=== PATIENT | female | born 1980 | race Caucasian/White ===

== ENCOUNTER 2016-11-28 08:35 | Day surgery (SDC) | payer OTHER ==
[~2016-11-28 08:35] MED LIST: LACTATED RINGERS 1,000 ML IV ONE
[2016-11-28] MEDS ORDERED: LACTATED RINGERS 1,000 ML IV SCH (08:43)
[2016-11-28 08:47] VITALS: RESP 16; TEMP 96.2
[2016-11-28] MEDS ORDERED: LIDOCAINE 1% 20 ML VIAL (10MG/ML) FOR IV START INTRADERMA ONE (08:50)
[2016-11-28] MEDS ORDERED: IOHEXOL 180 MG/ML 1 ML ML ONE (09:05)
[2016-11-28] MEDS ORDERED: BUPIVACAINE (PF) 0.5% 30 ML VIAL ONE (09:05)
[2016-11-28] MEDS ORDERED: TRIAMCINOLONE ACETONIDE 40 MG/ML 1 ML VIAL ONE (09:05)
[2016-11-28] MEDS ORDERED: IV FLUID CONTINUATION 1,000 ML IV ONE (09:29)
[2016-11-28 09:37] VITALS: PULSE 75
[2016-11-28 09:48] VITALS: BP 111/70
--- NOTE | 2016-11-28 09:48 | FL ---
EXAMINATION TYPE: FL guided pain mgmt statistic DATE OF EXAM: 11/28/2016 9:29 AM COMPARISON: NONE HISTORY: Back pain Fluoroscopy support supplied to the referring clinician. See dictated report from anesthesia, 5 seco nds fluoroscopy time, 2 intraoperative C-arm images document the procedure
--- NOTE | 2016-11-28 10:18 | P.PCN ---
Date of Procedure: 11/28/16 Anest[place]: [facility] [place] Surgeon: Rupert Haji Pathology: none sent Condition: stable Disposition: PACU Description of Procedure: PREOPERATIVE DIAGNOSIS: 1-Bilateral sacroiliitis. 2 Lumbar DDD POSTOPERATIVE DIAGNOSIS:. 1-Bilateral sacroiliitis. 2 Lumbar DDD PROCEDURES: Bilateral Sacroiliac joint steroid injection with fluoroscopy ANESTHESIA: Local with 1% lidocaine; Conscious sedation with Versed/fentanyl. EBL: Minimal. PROCEDURE INDICATIONS: This patient with a history of low back pain secondary to sacroiliitis and lumbar DDD unresponsive to conservative management. PROCEDURE DESCRIPTION: The patient was seen and identified in the preoperative area. Risks, benefits, complications, and alternatives were discussed with the patient (including but not limited to incomplete pain relief, bleeding, infection, nerve damage, and allergies to medications), the patient agreed to proceed with the procedure and signed the consent after all questions were answered. Patient was taken to the OR and time out was completed to verify proper patient , position, laterality of pain, and allergies. Pt was placed in the prone position and a pillow was placed under the abdomen to reduce lumbar lordosis. The lumbosacral area was prepped and draped in the usual sterile fashion. Critical pause was taken. Vital signs were closely monitored during the procedure. The fluoroscopic camera was placed in contralateral oblique view and right sacroiliiac joint lower pole was identified. After local infiltration with 1% lidocaine 2 ml, Subsequently, a 22-gauge 3.5 inch spinal needle was introduced into the posteroinferior aspect of the right sacroiliac joint under direct fluoroscopic visualization. Subsequently, 3 ml of a solution of a total of 6 ml solution containing total 4 mL of 0.5% preservative-free bupivicaine mixed with 80 mg of Kenalog was injected after negative aspiration for CSF, blood, and air and negative for paresthesia. The entire procedure was repeated on the left side as above. Needle was withdrawn intact. Skin was cleansed, and bandages were applied. COMPLICATIONS: None. COMMENTS: DISPOSITION / PLANS: The patient was placed in a supine position and transferred to the recovery area in a stable condition for observation and was discharged from the recovery room after meeting discharge criteria. Home discharge instructions given to the patient by the staff. The patient was reexamined prior to discharge. If the patient has relief, we will plan for SI RFA at next visit, right versus left.
== END 2016-11-28 10:00 | disposition home or self-care (01) ==
LOC: ORPAIN 08:35
PROVIDERS: ATTEND Anesthesiology
DX: M46.1 Sacroiliitis, not elsewhere classified (principal); M51.36 Other intervertebral disc degeneration, lumbar region; G89.29 Other chronic pain; F41.9 Anxiety disorder, unspecified; F32.9 Major depressive disorder, single episode, unspecified; Z79.891 Long term (current) use of opiate analgesic; Z79.899 Other long term (current) drug therapy; Z88.0 Allergy status to penicillin
CPT/HCPCS: 81025; J3301; Q9965; G0260

== ENCOUNTER 2017-01-16 07:08 | Day surgery (SDC) | payer OTHER ==
[2017-01-12 10:48] VITALS: BMI 34.7
[2017-01-16] MEDS ORDERED: LACTATED RINGERS 1,000 ML IV SCH (07:15)
[2017-01-16] MEDS ORDERED: LIDOCAINE 1% 20 ML VIAL (10MG/ML) FOR IV START INTRADERMA ONE (07:32)
[2017-01-16 07:38] VITALS: RESP 16; TEMP 98
[2017-01-16] MEDS ORDERED: BUPIVACAINE (PF) 0.5% 30 ML VIAL ONE (08:10)
[2017-01-16] MEDS ORDERED: TRIAMCINOLONE ACETONIDE 40 MG/ML 1 ML VIAL ONE (08:10)
[2017-01-16 08:57] VITALS: PULSE 83
--- NOTE | 2017-01-16 09:18 | XR ---
EXAMINATION TYPE: XR chest 1V portable DATE OF EXAM: 01/16/2017 8:54 AM COMPARISON: 09/15/2014 HISTORY: Shortness of breath sounds pneumothorax TECHNIQUE: Single frontal view of the chest is obtained. FINDINGS: There is no focal air space opacity, pleural effusion, or pneumothorax seen. The cardiac silhouette size is within normal limits. The osseous structures are intact. Heart size stable. IMPRESSION: No acute process.
[2017-01-16 09:22] VITALS: BP 124/88
--- NOTE | 2017-01-16 10:37 | P.PCN ---
Date of Procedure: 01/16/17 Surgeon: Rupert Haji Pathology: none sent Condition: stable Disposition: PACU Description of Procedure: PREOPERATIVE DIAGNOSIS: myofascial pain syndrome POSTOPERATIVE DIAGNOSIS: same PROCEDURE: Trigger point injections in lumbar paraspinal, thoracic paraspinal, quadratus lumborum muscles. ANESTHESIA: Local with 1% lidocaine; no sedation EBL: Minimal PROCEDURE INDICATION: Patient with severe muscle spasm and trigger points unresponsive to conservative therapy. Pt does not take any blood thinning medications. PROCEDURE DESCRIPTION: The patient was seen and identified in the preoperative area. Risks, benefits, complications, and alternatives were discussed with the patient (including but not limited to incomplete pain relief, bleeding, infection, nerve damage, and allergies to medications), the patient agreed to proceed with the procedure and signed the consent after all questions were answered. Trigger points were marked in preoperative area. Patient was taken to the OR and time out was completed to verify proper patient , position, laterality of pain, and allergies. Pt was placed in the sitting position. The relevant area was prepped and draped in the usual sterile fashion. The area over the myofascial spasm was prepped with Chloraprep utilizing sterile technique. After localization, the 25-gauge 1.5" needle was placed in the center of each of the spastic areas and aspirations were performed, which were negative. 1 ml of a 7 ml combination of 6 ml 0.5% PF bupivacaine and 40 mg Kenalog was injected into each trigger point. The patient tolerated the procedure well and had relief by the time the block had set. Needle was withdrawn intact after each injection. At the end of the procedure, the skin was cleansed and bandages were applied. COMPLICATIONS: None. DISPOSITION/PLAN: The patient was taken to the recovery area after the procedure in a stable condition for observation. Patient was reexamined prior to discharge and there were no issues. Patient was discharged home, accompanied by an adult, after meeting discharged criteria. Discharge instructions were give to the patient by the staff. Patient was specifically instructed not to drive today and to rest for the rest of the day. Patient will follow up in clinic in approximately 4-6 weeks.
== END 2017-01-16 09:42 | disposition home or self-care (01) ==
LOC: ORPAIN 07:08
PROVIDERS: ATTEND Anesthesiology
DX: G89.29 Other chronic pain (principal); M54.5 Low back pain; M79.1 Myalgia; Z79.891 Long term (current) use of opiate analgesic; Z79.3 Long term (current) use of hormonal contraceptives; Z79.899 Other long term (current) drug therapy; Z88.0 Allergy status to penicillin
CPT/HCPCS: 81025; 71010; 20553; J3301; 64479

== ENCOUNTER → 2017-02-20 | Outpatient (CLI) | payer OTHER ==
[2017-02-20 12:35] VITALS: BP 153/109; PULSE 95; RESP 18; TEMP 98
--- NOTE | 2017-02-20 13:06 | P.PN ---
Subjective This is follow-up visit for this patient with a history of severe and chronic low back pain secondary to lumbar degenerative disc disease And sacroiliitis, and myofascial pain syndrome, status post sacroiliac joint steroid injection, and trigger point injection for the thoracic area Patient reported that her low back pain completely gone after the sacroiliac joint injection, but currently she continued to have severe Mid back pain on the right side, and his pain interfering with her activity of daily livings, she consented to take [place] 10/325 when necessary Patient denies any side effects of the medication, denies excessive drowsiness or sleepiness, denies suicidal ideation, and reports that the current pain medication is NOT helping To control the pain and improve activity of daily living Physical Examinations : 1-Constitutiona : Cooperative , not in acute distress . 2-HEENT : nech ; supple , no Lymphadenopathy , no Thyromegaly , normal thyroid size . eyes : no ptosis , no icterus, no photophobia . ENT : normal of hearing , normal oropharynx , no Thrush . 3- Respiratory : Chest clear to auscultations Bilaterally , no wheezing , no Rhonchi . 4- Cardiovascular : regular rate and rhythem , S1 , S2 , no S3 , no S4. 5- Gastrointestinal : abdomen soft no tenderness , bowel sounds positive all four quadrents , no organomegally . 6- Genitourinary : Defferred . 7- neurologic : Cranial nerve II to XII intact , no focal neurological deffecit . 8-psychatric : alert , oriented X 3 , appropriate affect , intact judgment and insight . 9-Lymphatic : no Lymphadenopathy . 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 - diagnoses, prognosis, and treatment options including but not limited to physical therapy, interventional pain management and medication management Patient reported the children he did physical therapy without any benefit , The questions answered -medication management = Voltaren gel 1% to be applied to the right side of the posterior chest wall twice daily -procedure= right intercostal nerve block under fluoroscopy guidance mid to lower part Objective - Vital Signs Vital signs: Vital Signs Temp 98.0 F 02/20/17 12:28 Pulse 95 02/20/17 12:28 Resp 18 02/20/17 12:28 BP 153/109 02/20/17 12:28 Pulse Ox 95 02/20/17 12:28 Intake & Output 02/19/17 02/20/17 02/20/17 18:59 06:59 18:59 Weight 91.626 kg
== END | disposition home or self-care (01) ==
LOC: PNWHC3 12:12
PROVIDERS: ATTEND Specialist
DX: M51.36 Other intervertebral disc degeneration, lumbar region (principal); M46.1 Sacroiliitis, not elsewhere classified
CPT/HCPCS: 99211

== ENCOUNTER 2017-03-20 06:33 | Day surgery (SDC) | payer OTHER ==
[2017-03-17 08:49] VITALS: BMI 35.6
[~2017-03-20 06:33] MED LIST changes: -LACTATED RINGERS 1,000 ML IV ONE; +LACTATED RINGERS 1,000 ML IV SCH
[2017-03-20 06:59] VITALS: RESP 16; TEMP 97.9
[2017-03-20] MEDS ORDERED: LIDOCAINE 1% 20 ML VIAL (10MG/ML) FOR IV START INTRADERMA ONE (07:06)
[2017-03-20] MEDS ORDERED: TRIAMCINOLONE ACETONIDE 40 MG/ML 1 ML VIAL ONE (07:51)
[2017-03-20] MEDS ORDERED: MIDAZOLAM 2 MG/2 ML VIAL ONE (07:51)
[2017-03-20] MEDS ORDERED: IOHEXOL 180 MG/ML 1 ML ML ONE (07:51)
[2017-03-20] MEDS ORDERED: BUPIVACAINE (PF) 0.5% 30 ML VIAL ONE (07:51)
[2017-03-20] MEDS ORDERED: fentaNYL (PF) 50 MCG/ML 2 ML AMP ONE (07:51)
[2017-03-20] MEDS ORDERED: IV FLUID CONTINUATION 1,000 ML IV ONE (08:20)
--- NOTE | 2017-03-20 08:20 | P.PCN ---
Date of Procedure: 03/20/17 Procedure(s) Performed: PROCEDURE: right T 7 ,T8 ,T9 Neurolytic Intercostal nerve block under fluoroscopic guidance. PREOP DIAGNOSIS: Intercostal neuralgia. POSTOP DIAGNOSIS: Intercostal neuralgia. ANESTHESIA: IV sedation with Versed, 2 mg and Fentanyl 100 mcg ( moderate sedations ) EBL: Minimal DENTAL PRACTICE MANAGER: COMPLICATION: None. IV FLUIDS: 100 mL of normal saline. PROCEDURE INDICATION: Chronic right-sided thoracic pain secondary to intercostals neuralgia .the Painful area was marked, the preop holding area, then we went to the procedure room visualized rapes that is consistent with the pain for 40 Lorenzo was between T7 to T9 is for this reason we did leave a block at these levels PROCEDURE DESCRIPTION: The patient was seen and identified in the preoperative area. Risks, benefits, complications, and alternatives were discussed with the patient. The patient agreed to proceed with the procedure and signed the consent. IV was started. Vital signs were stable throughout the procedure. The patient was taken to the procedure room and was placed in the prone position on the procedure table. The thoracic area was prepped and draped in the usual sterile fashion. Critical pause was taken. Using anteroposterior fluoroscopy, the T9 (first level) rib on the right side was identified. An area approximately 2 inches lateral to the vertebral midline was localized under fluoroscopy. Subsequently, a 22-gauge, 3-1/2-inch needle was advanced under fluoroscopy towards the inferior aspect of the rib. After making contact with the rib, the needle was walked off and carefully slipped inferiorly off the rib. After negative aspiration and with the absence of paresthesias, 1,5 ml of Bupivacaine 0.5 % . The needle was subsequently removed while being flushed with Bupivacaine 0.5% and the same procedure was repeated at the levels of T8 , then to T7 At the end of the procedure, skin was cleansed, and bandages were applied. Patient denied any shortness of breath after the procedure. Lungs auscultation showed clear and equal air entry bilaterally after the procedure. The patient tolerated the procedure well without complications. Patient was observed in the recovery area until she met all discharge criteria. chest x-ray in the recovery room
--- NOTE | 2017-03-20 08:28 | FL ---
EXAMINATION TYPE: FL guided pain mgmt statistic DATE OF EXAM: 03/20/2017 8:19 AM HISTORY: Flouroscopy time 6 seconds of fluoroscopy provided. IMPRESSION: 1. Fluoroscopy time.
--- NOTE | 2017-03-20 08:41 | XR ---
EXAMINATION TYPE: XR chest 1V portable DATE OF EXAM: 03/20/2017 8:33 AM COMPARISON: 01/16/2017 HISTORY: Pain possible pneumothorax TECHNIQUE: Single frontal view of the chest is obtained. FINDINGS: There is no focal air space opacity, pleural effusion, or pneumothorax seen. The cardiac silhouette size is within normal limits. The osseous structures are intact. IMPRESSION: No acute process.
[2017-03-20 08:45] VITALS: BP 122/86; PULSE 77
== END 2017-03-20 09:05 | disposition home or self-care (01) ==
LOC: ORPAIN 06:33
PROVIDERS: ATTEND Specialist
DX: G89.29 Other chronic pain (principal); G58.8 Other specified mononeuropathies; M51.36 Other intervertebral disc degeneration, lumbar region; M46.1 Sacroiliitis, not elsewhere classified; M79.1 Myalgia; Z79.891 Long term (current) use of opiate analgesic; Z88.0 Allergy status to penicillin; I10 Essential (primary) hypertension
CPT/HCPCS: 81025; 71010; 64421; 99152; J2250; J3301; Q9965; J3010

== ENCOUNTER 2017-04-11 10:07 | Day surgery (SDC) | payer OTHER ==
[2017-04-05 10:50] VITALS: BMI 34.7
[2017-04-11 10:31] VITALS: TEMP 96.2
[2017-04-11] MEDS ORDERED: LIDOCAINE 1% 20 ML VIAL (10MG/ML) FOR IV START INTRADERMA PRN (10:39)
[2017-04-11] MEDS ORDERED: LACTATED RINGERS 1,000 ML IV SCH (10:39)
[2017-04-11] MEDS ORDERED: fentaNYL (PF) 50 MCG/ML 2 ML AMP ONE (11:05)
[2017-04-11] MEDS ORDERED: BUPIVACAINE (PF) 0.5% 30 ML VIAL ONE (11:05)
[2017-04-11] MEDS ORDERED: MIDAZOLAM 2 MG/2 ML VIAL ONE (11:05)
[2017-04-11] MEDS ORDERED: TRIAMCINOLONE ACETONIDE 40 MG/ML 1 ML VIAL ONE (11:05)
[2017-04-11] MEDS ORDERED: IOHEXOL 180 MG/ML 1 ML ML ONE (11:05)
[2017-04-11] MEDS ORDERED: IV FLUID CONTINUATION 1,000 ML IV ONE (11:27)
--- NOTE | 2017-04-11 11:28 | P.PCN ---
Date of Procedure: 04/11/17 Preoperative Diagnosis: Postoperative Diagnosis: Procedure(s) Performed: PROCEDURE: right sided T7, T8, T9. Intercostal nerve block under fluoroscopic guidance. PREOP DIAGNOSIS: Intercostal neuralgia. POSTOP DIAGNOSIS: Intercostal neuralgia. ANESTHESIA: IV sedation with Versed 2 mg , and Fentanyl 100 mcg EBL: Minimal SENIOR UI UX DEVELOPER: COMPLICATION: None. IV FLUIDS: 100 mL of normal saline. PROCEDURE INDICATION: Chronic right-sided thoracic pain secondary to intercostals neuralgia ,she is here for diagnostic block with Bupivacaine. PROCEDURE DESCRIPTION: The patient was seen and identified in the preoperative area. Risks, benefits, complications, and alternatives were discussed with the patient. The patient agreed to proceed with the procedure and signed the consent. IV was started. Vital signs were stable throughout the procedure. The patient was taken to the procedure room and was placed in the prone position on the procedure table. The thoracic area was prepped and draped in the usual sterile fashion. Critical pause was taken. Using anteroposterior fluoroscopy, the T9(first level) rib on the right was identified. An area approximately 2 inches lateral to the vertebral midline was localized under fluoroscopy. Subsequently, a 25-gauge, 3-1/2-inch needle was advanced under fluoroscopy towards the inferior aspect of the rib. After making contact with the rib, the needle was walked off and carefully slipped inferiorly off the rib. After negative aspiration and with the absence of paresthesias, 1,5 ml of Bupivacaine 0.5 % mixed with kenalog . and the same procedure was repeated at the levels of right T8, and T7 At the end of the procedure, skin was cleansed, and bandages were applied. Patient denied any shortness of breath after the procedure. Lungs auscultation showed clear and equal air entry bilaterally after the procedure. The patient tolerated the procedure well without complications. Patient was observed in the recovery area until he/she met all discharge criteria. Chest X Ray was orded To confirm that there is no pneumothorax Implants: Indications for Procedure: Operative Findings: Description of Procedure:
[2017-04-11 11:30] VITALS: RESP 18
[2017-04-11 11:46] VITALS: BP 129/83; PULSE 84
--- NOTE | 2017-04-11 11:57 | XR ---
EXAMINATION TYPE: XR chest 1V portable DATE OF EXAM: 04/11/2017 11:52 AM COMPARISON: 03/20/2017 INDICATION: Pneumothorax, difficulty breathing TECHNIQUE: Single frontal view of the chest is obtained. FINDINGS: The heart size is normal. The pulmonary vasculature is normal. The lungs are clear. There is slight increased density at the anterior right first rib and, present previously No pneumothorax is evident. IMPRESSION: 1. No acute pulmonary process. 2. No pneumothorax
--- NOTE | 2017-04-11 12:01 | FL ---
Fluoroscopy HISTORY: Pain 8 seconds fluoroscopy time supplied to the referring clinician. 3 intraoperative C-arm images docume nt the procedure. See dictated report from anesthesia.
== END 2017-04-11 12:03 | disposition home or self-care (01) ==
LOC: ORPAIN 10:07
PROVIDERS: ATTEND Specialist
DX: G58.0 Intercostal neuropathy (principal); Z88.0 Allergy status to penicillin
CPT/HCPCS: 81025; 71010; 64421; 99152; J2250; J3301; Q9965; J3010

== ENCOUNTER → 2017-07-05 | Outpatient (CLI) | payer OTHER ==
[2017-07-05 15:30] LABS: Basophils % (A) 0 %; CH 32.3; CHCM 34.6; Eosinophils # (A) 0.1 k/uL (0-0.7); Eosinophils % (A) 2 %; HCT 43.1 % (34.0-46.0); Luc # (Auto) 0.17; Luc % (Auto) 2; Lymphocytes % (A) 27 %; MCH 32.7 pg (25.0-35.0); MCHC 34.8 g/dL (31.0-37.0); MCV 93.7 fL (80.0-100.0); Mean Platelet Volume 7.3; Monocytes # (A) 0.4 k/uL (0-1.0); Monocytes % (A) 6 %; Neutrophils # (A) 4.7 k/uL (1.3-7.7); Neutrophils % (A) 63 %; RDW 12.5 % (11.5-15.5); WBC 7.4 k/uL (3.8-10.6); WBC (Perox) 6.76
== END | disposition home or self-care (01) ==
LOC: LABPAT 14:45
PROVIDERS: ATTEND Obstetrics & Gynecology
DX: Z01.812 Encounter for preprocedural laboratory examination (principal)
CPT/HCPCS: 85025

== ENCOUNTER 2017-07-12 06:28 | Day surgery (SDC) | payer OTHER ==
[2017-07-06 12:20] VITALS: BMI 32.5
--- NOTE | 2017-07-11 16:57 | P.HPOB ---
History of Present Illness H&P Date: 07/11/17 Chief Complaint: Family Planning 37 year old presents for laparoscopic tubal ligation and removal of nexplanon. Review of Systems All systems: negative Constitutional: Denies chills, Denies fever Eyes: denies blurred vision, denies pain Ears, nose, mouth and throat: Denies headache, Denies sore throat Cardiovascular: Denies chest pain, Denies shortness of breath Respiratory: Denies cough Gastrointestinal: Denies abdominal pain, Denies diarrhea, Denies nausea, Denies vomiting Genitourinary: Denies dysuria, Denies hematuria Musculoskeletal: Denies myalgias Integumentary: Denies pruritus, Denies rash Neurological: Denies numbness, Denies weakness Psychiatric: Denies anxiety, Denies depression Endocrine: Denies fatigue, Denies weight change Past Medical History Past Medical History: Hypertension, Osteoarthritis (OA), Seizure Disorder Additional Past Medical History / Comment(s): Urinary incontinence at night. Pain MID RT Back. HX 2 SEIZURES, POSS STRESS INDUCED, LAST SEIZURE 2013. History of Any Multi-Drug Resistant Organisms: MRSA Date of last positivie culture/infection: 05/2016 MDRO Source:: BILAT groin Past Surgical History: Section, Orthopedic Surgery Additional Past Surgical History / Comment(s): I&D RT groin wound; left hand carpal tunnel surgery. PAIN PROC Past Anesthesia/Blood Transfusion Reactions: Motion Sickness Past Psychological History: Depression Smoking Status: Current every day smoker Past Alcohol Use History: Occasional (2-3x week) Past Drug Use History: None Reported - Past Family History Mother Family Medical History: No Reported History Medications and Allergies Home Medications Medication Instructions Recorded Confirmed Type HYDROcodone/APAP 10-325MG [[place] 1 tab PO TID 07/13/14 04/11/17 History 10-325] Acetaminophen/Diphenhydramine 1 tab PO HS PRN 01/12/17 04/11/17 History [Tylenol PM 500-25mg] Etonogestrel [Nexplanon ( 68 mg SQ CONTINUOUS 01/12/17 04/11/17 History control implant)] Allergies Allergy/AdvReac Type Severity Reaction Status Date / Time Penicillins Allergy Mild Rash/Hives Verified 07/06/17 12:15 Exam Osteopathic Statement: *. No significant issues noted on an osteopathic structural exam other than those noted in the History and Physical/Consult. HEart: RRR Lungs: CTAB Abdomen: soft, nontender Extremeties: neg yanira's Assessment and Plan (1) Family planning Status: Acute Plan: 1. laparoscopic tubal ligation and removal of nexplanon.
[~2017-07-12 06:28] MED LIST changes: +DEXAMETHASONE SOD PHOSPHATE 10 MG/ML 1 ML VIAL IV ONE; +HYDROmorphone 1 MG/ML 1 ML SYRINGE IVP PRN; +ONDANSETRON 4 MG/2 ML VIAL IVP ONE; +Pre Op ABX Message 1 EACH MISC MISCELLANE ONE
[2017-07-12] MEDS ORDERED: LIDOCAINE 1% 20 ML VIAL (10MG/ML) FOR IV START INTRADERMA ONE (07:03)
[2017-07-12] MEDS ORDERED: SCOPOLAMINE 1.5MG/72HR PATCH TRANSDERM STA (07:04)
[2017-07-12] MEDS ORDERED: SUCCINYLCHOLINE CHLORIDE 100 MG/5 ML SYR IV ONE (07:27)
[2017-07-12] MEDS ORDERED: NEOSTIGMINE 1 MG/ML 10 ML VIAL ONE (07:27)
[2017-07-12] MEDS ORDERED: BUPIVACAINE (PF) 0.25% 30 ML VIAL SQ ONE (07:27)
[2017-07-12] MEDS ORDERED: MIDAZOLAM 2 MG/2 ML VIAL ONE (07:27)
[2017-07-12] MEDS ORDERED: GLYCOPYRROLATE 0.2 MG/ML 2 ML VIAL ONE (07:27)
[2017-07-12] MEDS ORDERED: PROPOFOL 10 MG/ML 20 ML VIAL IV ONE (07:27)
[2017-07-12] MEDS ORDERED: fentaNYL (PF) 50 MCG/ML 2 ML AMP ONE (07:27)
[2017-07-12] MEDS ORDERED: LIDOCAINE 1% INJ 10MG/ML (20 ML MDV) ONE (07:27)
[2017-07-12] MEDS ORDERED: ROCURONIUM BROMIDE 10 MG/ML 10 ML VIAL IV ONE (07:27)
--- NOTE | 2017-07-12 08:34 | P.OP ---
Date of Procedure: 07/12/17 Preoperative Diagnosis: 1. Family planning Postoperative Diagnosis: 1. Family planning Procedure(s) Performed: Laparoscopic tubal ligation and removal of Nexplanon Implants: Anesthesia: GETA Surgeon: Nicole Benito Estimated Blood Loss (ml): 5 IV fluids (ml): 500 Urine output (ml): 10 Pathology: none sent Condition: stable Disposition: floor Indications for Procedure: Operative Findings: Normal Uterus tubes and ovaries Description of Procedure: Patient was taken to the operating room where general anesthesia was obtained without difficulty. She was prepped and draped in normal sterile fashion in the dorsal lithotomy position, legs placed in the Dewayne stirrups. Bladder drained of all urine. [place] speculum placed in the vagina and the anterior lip the cervix was grasped with single-tooth tenaculum. The uterus is sounded to 9 cm and the kroner manipulator was placed. Attention was then turned to the abdomen and gloves were changed. A 10 mm infraumbilical incision was made the scalpel and 10 mm optical trocar was placed under direct visualization. A 5 mm suprapubic Incision was made and a 5 mm optical trocar was placed under direct visualization. Survey of the pelvis revealed normal uterus tubes and ovaries. The left fallopian tube was grasped with a Kleppinger and fulgurated 2 -3 cm on this side in the ampullar portion. The right fallopian tube was grasped with a Kleppinger and fulgurated 2-3 cm in the ampullar portion. All instruments were then removed from the abdomen and vagina. The 10 mm infraumbilical incision was closed with 0 Vicryl and the fascial layer and then 4-0 Vicryl in a subcuticular fashion. The 5 mm incision was closed with 4-0 Vicryl in a subcuticular fashion. Attention was then turned to the left bicep region. The Nexplanon was identified. A 2 mm incision was made, Nexplanon was delivered through the incision, grasped with a hemostat and easily removed. Incision was closed with 0 Vicryl in a subcuticular fashion. Patient tolerated procedure well, sponge and instrument counts correct 2 and she was taken to recovery room in stable condition.
[2017-07-12 08:38] VITALS: TEMP 97
[2017-07-12] MEDS ORDERED: HYDROmorphone 1 MG/ML 1 ML SYRINGE IVP ONE ×2 (08:39→08:44)
[2017-07-12] MEDS ORDERED: LACTATED RINGERS 1,000 ML IV ONE (08:47)
[2017-07-12 09:53] VITALS: RESP 16
[2017-07-12] MEDS ORDERED: IBUPROFEN 200 MG TAB PO ONE (10:15)
[2017-07-12 10:19] VITALS: BP 123/87; PULSE 82
== END 2017-07-12 10:47 | disposition home or self-care (01) ==
LOC: OR 06:28
PROVIDERS: ATTEND Obstetrics & Gynecology
DX: Z30.2 Encounter for sterilization (principal); I10 Essential (primary) hypertension; M19.90 Unspecified osteoarthritis, unspecified site; G40.909 Epilepsy, unspecified, not intractable, without status epilepticus; F32.9 Major depressive disorder, single episode, unspecified; N39.3 Stress incontinence (female) (male); Z79.3 Long term (current) use of hormonal contraceptives; Z79.891 Long term (current) use of opiate analgesic; Z88.0 Allergy status to penicillin; Z86.14 Personal history of Methicillin resistant Staphylococcus aureus infection; F17.200 Nicotine dependence, unspecified, uncomplicated
CPT/HCPCS: 81025; 58670; 11982; J2250; J1100; J2710; J2405; J2001; J3010; J1170; J0330; J2704

== ENCOUNTER → 2017-09-22 | Outpatient (CLI) | payer OTHER ==
--- NOTE | 2017-09-22 09:13 | MR ---
EXAMINATION TYPE: MR thoracic spine wo con DATE OF EXAM: 09/22/2017 8:46 AM COMPARISON: NONE HISTORY: Thoracic Spondylosis and myelopathy Multiplanar MultiSpin echo imaging of the thoracic spine was performed. Disc spaces: Mild to moderate decreased signal and loss of height at T7-T8 with the right paracentral disc herniation. There is effacement of the ventral thecal sac and mild ventral cord contact. No def inite myelopathy changes identified at this time. Moderate decreased signal and loss of height at T11 -T12 with left paracentral broad-based disc protrusion. Mild effacement ventral thecal sac. No defini te cord contact at this time. Borderline central stenosis at this level. Remaining thoracic levels ar e within normal limits. Spinal canal: Borderline central stenosis at the T11-T12. Thoracic spinal cord: Thoracic spinal cord is of normal caliber and signal. Paraspinal soft tissues: No evidence for paraspinal mass. No destructive lesions seen. Vertebral segments: Hemangioma of T4. No destructive bone lesions seen. T10 hemangioma also identifie d. IMPRESSION: 1. Degenerative disc disease as discussed. 2. Right paracentral disc herniation at T7-T8 as well as broad-based disc protrusion at T11-T12. See above.
== END | disposition home or self-care (01) ==
LOC: RADMRIMAIN 08:12
PROVIDERS: ATTEND Anesthesiology
DX: M51.24 Other intervertebral disc displacement, thoracic region (principal); M51.34 Other intervertebral disc degeneration, thoracic region
CPT/HCPCS: 72146

== ENCOUNTER → 2017-10-11 | Outpatient (CLI) | payer OTHER ==
[2017-10-11 11:50] VITALS: BP 125/82; PULSE 82; RESP 18; TEMP 98
--- NOTE | 2017-10-11 11:59 | P.PN ---
Progress Note - Text Progress Note Date: 10/11/17 Patient returns for followup for chronic low back and mid-back pain with radiation to R flank and anterior abdomen. Patient improved with SI joint injections for lower back, but had little relief with thoracic TPI and intercostal NB x 2; MRI T-spine results below. Patient continues on [place] pain medications from Dr. Machado. Today, pt denies new-onset weakness, bowel/bladder incontinence, or any other signs or symptoms of cauda equina syndrome. There are no signs of acute intoxication, and no indications of medication diversion or overuse. In addition to above, 13-point review of systems is also negative for chest pain , shortness of breath, changes in vision, changes in hearing, new onset weakness , abdominal pain, diarrhea, extreme fatigue, malaise, fever, skin changes, homicidal or suicidal ideation, or bowel or bladder incontinence. Vital Signs: Reviewed in EMR Gen: WDWN, AAOx3, NAD HEENT: NCAT, EOMI, hearing grossly normal Pulm: resp unlabored Abd: soft, NT, ND Neck: supple, trachea midline ROM in flexion thoracic spine: reduced ROM in extension Thoracic spine: reduced Thoracic paravertebral tenderness: + R > L Thoracic Facet tenderness: + R > L Neuro: CN II-XII grossly intact, muscle strength lower extremities PRESERVED Imaging: MRI thoracic spine without contrast dated 09/22/2017 demonstrates a right paracentral disc herniation of the T7-T8 level with effacement of the ventral thecal sac and mild ventral cord contact. There is moderately decreased signal and loss of height at the T11-T12 level with left paracentral broad-based disc protrusion with mild effacement of ventral thecal sac and borderline central canal stenosis at this level. Assessment: 1. thoracic spondylosis 2. SIJ dysfunction 3. chronic pain syndrome Plan: 1. Explanation: Opioid and psychological risk scores were reviewed. Diagnoses , prognoses, and multiple treatment options including but not limited to physical therapy, interventional therapies, adjuvant medical therapies, narcotic medication therapies, and surgery were discussed with the patient and all questions were answered to the patient's satisfaction. 2. Opioid agreement: no opioids prescribed today 3. Counseling: The patient was counseled extensively on BODY MASS INDEX, EXERCISE. Specifically, the patient was instructed regarding the importance of weight control, and exercise in the context of both chronic pain and overall health. 4. Procedures: thoracic HAMLET T11-T12 if possible 5. Consultations: None 6. Investigations: None 7. Medications: none prescribed 8. Disposition: f/u for procedure as scheduled PQRS measures: 1-Patient's medications are documented in the chart. 2-Tobacco use is negative 3-Patient has not had a pneumococcal vaccine. 4-Advanced care planning discussed, patient unable to give. 5-Opioid contract NOT signed with the patient. 6-Pain positive, follow-up visit or procedure scheduled 7-Patient's blood pressure measured and documented, and WNL 8-Patient's weight was measured, and body mass index ABOVE the normal limits, and counseling was done. Patient instructed to follow up with PCP. 9-Patient WAS NOT identified as an unhealthy alcohol user.
== END | disposition home or self-care (01) ==
LOC: PNWHC3 11:24
PROVIDERS: ATTEND Anesthesiology
DX: M47.814 Spondylosis without myelopathy or radiculopathy, thoracic region (principal); M53.3 Sacrococcygeal disorders, not elsewhere classified; G89.4 Chronic pain syndrome
CPT/HCPCS: 99211

== ENCOUNTER → 2017-11-21 | Day surgery (SDC) | payer OTHER ==
[2017-11-15 23:09] VITALS: BMI 34.3
[~2017-11-21] MED LIST changes: -DEXAMETHASONE SOD PHOSPHATE 10 MG/ML 1 ML VIAL IV ONE; -HYDROmorphone 1 MG/ML 1 ML SYRINGE IVP PRN; +IV FLUID CONTINUATION 1,000 ML IV ONE; +LIDOCAINE 1% 20 ML VIAL (10MG/ML) FOR IV START INTRADERMA ONE; -ONDANSETRON 4 MG/2 ML VIAL IVP ONE; -Pre Op ABX Message 1 EACH MISC MISCELLANE ONE
[2017-11-21 08:03] VITALS: TEMP 97.9
--- NOTE | 2017-11-21 09:33 | P.PCN ---
Date of Procedure: 11/21/17 Surgeon: Rupert Haji Pathology: none sent Condition: stable Disposition: PACU Description of Procedure: PREOPERATIVE DIAGNOSIS: 1-Thoracic disc herniation POSTOPERATIVE DIAGNOSIS: same PROCEDURE 1. Thoracic epidural steroid injection under fluoroscopic guidance at the T11- T12 level. 2. Thoracic epidurogram. ANESTHESIA: Local with 1% lidocaine; IV sedation with Versed/fentanyl. EBL: Minimal PROCEDURE INDICATION: The patient with mid-back pain and radicular symptoms unresponsive to conservative treatment and to intercostal nerve blocks. Fluoroscopy was used to optimize visualization of the needle placement and to maximize safety. No use of blood thinners. PROCEDURE DESCRIPTION / TECHNIQUE: The patient was seen and identified in the preoperative area. Risks, benefits, complications, and alternatives were discussed with the patient, including but not limited to bleeding, infection, nerve damage, allergic reactions to medications, and incomplete pain relief. The patient agreed to proceed with the procedure and signed the consent after all questions were answered. IV was started, and vital signs were stable. Patient was taken to the OR and time out was completed to confirm patient position, procedure, laterality of pain, and allergies. The patient was placed in the prone position on procedure table and a pillow was placed under the abdomen to reduce lumbar lordosis. The lumbosacral area was prepped and draped in the usual sterile fashion. Critical pause was taken. Vital signs were closely monitored during the procedure. Conscious sedation was used during the procedure to decrease patients anxiety. Using anterior-posterior fluoroscopy, the T11-T12 interlaminar space was identified and the skin over this site was marked and then infiltrated with 1% lidocaine subcutaneously. Subsequently, a 20-gauge 3.5-inch Tuohy epidural needle was inserted and advanced toward the epidural space using the Loss of resistance technique and guided by AP and lateral fluoroscopy. The correct needle position in the epidural space was verified with the injection of 2 mL of the water soluble contrast dye Omnipaque 300 contrast and observing an excellent epidurogram with the epidural spread of the dye, after negative aspiration for blood and CSF and in the absence of paresthesias. Again after negative aspiration, a 4 ml mixture containing 20 mg of PF Decadron and 2 ml of preservative free lidocaine 1% solution was injected and a washout of epidurogram was seen. Needle was withdrawn intact, skin was cleansed, and bandages were applied. COMPLICATIONS: None COMMENTS: DISPOSITION / PLANS: The patient was placed in a supine position and transferred to the recovery area in a stable condition for observation. There was no evidence of lower extremity motor or sensory deficit after the procedure. Patient was discharged from the recovery room after meeting discharge criteria. Home discharge instructions were given to the patient by the staff. The patient was reexamined prior to discharge and there were no issues. The patient will schedule a repeat injection in 3-4 weeks.
[2017-11-21 09:38] VITALS: RESP 18
[2017-11-21 10:00] VITALS: BP 114/64; PULSE 68
--- NOTE | 2017-11-21 11:27 | FL ---
Fluoroscopy HISTORY: Pain 9 seconds fluoroscopy time supplied to the referring clinician. 3 intraoperative C-arm images docume nt the procedure. See dictated report from anesthesia.
== END ==
LOC: ORPAIN 07:42
PROVIDERS: ATTEND Anesthesiology
DX: M51.14 Intervertebral disc disorders with radiculopathy, thoracic region (principal); Z88.0 Allergy status to penicillin; Z88.8 Allergy status to other drugs, medicaments and biological substances
CPT/HCPCS: 81025; 62321; J2250; J1100; Q9965; J3010; 99152

== ENCOUNTER 2017-12-21 06:26 | Day surgery (SDC) | payer OTHER ==
[2017-12-13 15:28] VITALS: BMI 33.9
[~2017-12-21 06:26] MED LIST changes: -IV FLUID CONTINUATION 1,000 ML IV ONE; -LIDOCAINE 1% 20 ML VIAL (10MG/ML) FOR IV START INTRADERMA ONE
[2017-12-21] MEDS ORDERED: LIDOCAINE 1% 20 ML VIAL (10MG/ML) FOR IV START INTRADERMA ONE (06:50)
[2017-12-21] MEDS ORDERED: IV FLUID CONTINUATION 1,000 ML IV ONE (07:18)
--- NOTE | 2017-12-21 07:22 | P.PCN ---
Date of Procedure: 12/21/17 Procedure(s) Performed: PREOPERATIVE DIAGNOSIS: 1- Thoracic Herniated Disc Diseases. POSTOPERATIVE DIAGNOSIS: 1-Thoracic herniated Disc Diseases. PROCEDURE 1. Thoracic epidural steroid injection under fluoroscopic guidance at the T7-8 level. 2. Thoracic epidurogram. ANESTHESIA: Local with 1% lidocaine 3 ml and , moderate sedation with intravenous Versed 2 mg ,and fentanyle 100 Mcg EBL: Minimal PROCEDURE INDICATION: The patient with mid back pain and radiculitis symptoms unresponsive to conservative treatment. Fluoroscopy was used to optimize visualization of the needle placement and to maximize safety. PROCEDURE DESCRIPTION / TECHNIQUE: The patient was seen and identified in the preoperative area. Risks, benefits , complications including but not limited to infections ,bleeding ,allergic reaction to the medications ,nerve damage and not complete pain releife , and alternatives were discussed with the patient. The patient agreed to proceed with the procedure and signed the consent. IV was started, and vital signs were stable. Patient was taken to the OR and time out was completed. The patient was placed in the prone position on procedure table and a pillow was placed under the abdomen to reduce lumbar lordosis. The lumbosacral area was prepped and draped in the usual sterile fashion.ere closely monitored during the procedure. Conscious sedation was used during the procedure to decrease patients anxiety. Vital signs was monitered during the entire procedure. Using anterior-posterior fluoroscopy, the T7-8 interlaminar space was identified and the skin over this site was marked and then infiltrated with 1% lidocaine subcutaneously. Subsequently, a 20-gauge Tuohy epidural needle was inserted and advanced toward the epidural space using the ``Loss of resistance technique and guided by AP and lateral fluoroscopy. The correct needle position in the epidural space was verified with the injection of 2 mL of the water soluble contrast dye Omnipaque 180 contrast and observing an excellent epidurogram with the epidural spread of the dye, after negative aspiration for blood and CSF and in the absence of paresthesias. Again after negative aspiration, a 6 ml mixture containing 20 mg of Dexamethasone and 2 ml of preservative free Normal Saline, and 2 ml of preservative free lidocaine 1% solution was injected and a washout of epidurogram was seen. Needle was withdrawn intact, skin was cleansed, and bandages were applied. COMPLICATIONS: None DISPOSITION / PLANS: The patient was placed in a supine position and transferred to the recovery area in a stable condition for observation. There was no evidence of lower extremity motor or sensory deficit after the procedure. Patient was discharged from the recovery room after meeting discharge criteria. Home discharge instructions were given to the patient by the staff. The patient was reexamined prior to discharge. The patient will schedule a follow up in the clinic in 2-4 weeks.
[2017-12-21 08:16] VITALS: BP 126/82; PULSE 87; RESP 16; TEMP 96.9
--- NOTE | 2017-12-21 09:11 | FL ---
EXAMINATION TYPE: FL guidance operating room DATE OF EXAM: 12/21/2017 HISTORY: Flouroscopy time 5 seconds of fluoroscopy provided. IMPRESSION: 1. Fluoroscopy time.
== END 2017-12-21 08:33 | disposition home or self-care (01) ==
LOC: ORPAIN 06:26
PROVIDERS: ATTEND Specialist
DX: M51.14 Intervertebral disc disorders with radiculopathy, thoracic region (principal); Z88.0 Allergy status to penicillin; Z88.8 Allergy status to other drugs, medicaments and biological substances
CPT/HCPCS: 81025; 62321; J2250; J1100; Q9965; J3010

== ENCOUNTER → 2018-01-29 | Outpatient (CLI) | payer OTHER ==
[2018-01-29 14:46] VITALS: BP 142/85; PULSE 116; RESP 16
--- NOTE | 2018-01-29 19:50 | P.PN ---
Subjective Progress Note Date: 01/29/18 This is follow-up visit for this patient with a history of severe and chronic mid back pain secondary to thoracic herniated disc disease ,we have done thoracic epidural steroid injections 2, and she reported that her pain improved significantly after the second injection, Patients currently on Candor 10/325 every 6 hours and Cymbalta Patient denies any side effects of the medication, denies excessive drowsiness or sleepiness, denies suicidal ideation, and reports that the current pain medication is helping To control the pain and improve activity of daily living Patient denies any motor or sensory deficit , patient denies any fever or night sweats, denies any change in the bowel movements or urination Physical Examinations : 1-Constitutiona : Cooperative , not in acute distress . 2-HEENT : nech ; supple , no Lymphadenopathy , no Thyromegaly , normal thyroid size . eyes : no ptosis , no icterus, no photophobia . ENT : normal of hearing , normal oropharynx , no Thrush . 3- Respiratory : Chest clear to auscultations Bilaterally , no wheezing , no Rhonchi . 4- Cardiovascular : regular rate and rhythem , S1 , S2 , no S3 , no S4. 5- Gastrointestinal : abdomen soft no tenderness , bowel sounds positive all four quadrents , no organomegally . 6- Genitourinary : Defferred . 7- neurologic : Cranial nerve II to XII intact , no focal neurological deffecit . 8-psychatric : alert , oriented X 3 , appropriate affect , intact judgment and insight . 9-Lymphatic : no Lymphadenopathy . 10- musculoskeltal : exams of the cervical spine = motor strength normal bilateral upper extremities exams of the Lumber spine = motor strength lower extremities ,thigh and legs .5/5 Assessment and plan = The back pain secondary to thoracic herniated disc disease pain improved significantly, patient getting prescription refill from her primary care she will follow up with the pain clinic when necessary Objective - Vital Signs Vital signs: Vital Signs Temp Pulse 116 H 01/29/18 14:42 Resp 16 01/29/18 14:42 BP 142/85 01/29/18 14:42 Pulse Ox 97 01/29/18 14:42 Intake & Output 01/29/18 01/29/18 01/30/18 06:59 18:59 06:59 Weight 92.986 kg
== END | disposition home or self-care (01) ==
LOC: PNWHC3 14:26
PROVIDERS: ATTEND Specialist
DX: M51.24 Other intervertebral disc displacement, thoracic region (principal); Z79.891 Long term (current) use of opiate analgesic; Z79.899 Other long term (current) drug therapy
CPT/HCPCS: 99211

== ENCOUNTER 2018-07-21 08:27 | Emergency (ER) | payer OTHER ==
[2018-07-21 08:34] VITALS: BP 127/79; PULSE 80; RESP 18; TEMP 98.7
[2018-07-21] MEDS ORDERED: LIDOCAINE 1% INJ 10MG/ML (20 ML MDV) SQ ONE (08:42)
--- NOTE | 2018-07-21 08:43 | ED ---
Skin/Abscess/FB HPI - General Chief complaint: Skin/Abscess/Foreign Body Stated complaint: Abscess on face Time Seen by Provider: 07/21/18 08:35 Source: patient, RN notes reviewed Mode of arrival: ambulatory Limitations: no limitations - History of Present Illness Initial comments: This is a 38-year-old female presents emergency Department chief complaint of abscess to right side of her face. Patient states last few days she's had increased swelling, noted that it looks like a large pimple. Patient states that she's HAD some sort of cyst there that a contract negotiation specialist tried to inject of steroids but did not help. Patient reports no fever no chills no trismus. Patient denies any neck pain or neck stiffness. - Related Data Home Medications Medication Instructions Recorded Confirmed HYDROcodone/APAP 10-325MG [[place] 1 tab PO TID PRN 07/13/14 01/29/18 10-325] DULoxetine HCL [Cymbalta] 40 mg PO BID 12/21/17 01/29/18 Allergies Allergy/AdvReac Type Severity Reaction Status Date / Time Penicillins Allergy Mild Rash/Hives Verified 01/29/18 14:38 fluoxetine [From Prozac] Allergy Vomiting Verified 01/29/18 14:38 Review of Systems ROS Statement: Those systems with pertinent positive or pertinent negative responses have been documented in the HPI. ROS Other: All systems not noted in ROS Statement are negative. Past Medical History Past Medical History: Hypertension, Musculoskeletal Disorder, Osteoarthritis (OA ), Seizure Disorder Additional Past Medical History / Comment(s): Urinary incontinence at night. Pain Back. HX 2 SEIZURES, POSS STRESS INDUCED, LAST SEIZURE 2013. History of Any Multi-Drug Resistant Organisms: MRSA Date of last positivie culture/infection: jun 2014 MDRO Source:: groin Past Surgical History: Section, Orthopedic Surgery, Tubal Ligation Additional Past Surgical History / Comment(s): I&D groin wound; left hand carpal tunnel surgery. PAIN PROC Past Anesthesia/Blood Transfusion Reactions: Motion Sickness Past Psychological History: Anxiety, Depression, PTSD Smoking Status: Current every day smoker Past Alcohol Use History: Occasional Past Drug Use History: None Reported - Past Family History Mother Family Medical History: No Reported History General Exam Limitations: no limitations General appearance: alert, in no apparent distress Head exam: Present: atraumatic, normocephalic, normal inspection Eye exam: Present: normal appearance, PERRL, EOMI. Absent: scleral icterus, conjunctival injection, periorbital swelling ENT exam: Present: normal exam, normal oropharynx, mucous membranes moist, TM's normal bilaterally, normal external ear exam, other (Right lower jawline there is a 1 cm abscess noted) Neck exam: Present: normal inspection, full ROM. Absent: tenderness, meningismus, lymphadenopathy Respiratory exam: Present: normal lung sounds bilaterally. Absent: respiratory distress, wheezes, rales, rhonchi, stridor Cardiovascular Exam: Present: regular rate, normal rhythm, normal heart sounds. Absent: systolic murmur, diastolic murmur, rubs, gallop, clicks Skin exam: Present: warm, dry, intact, normal color. Absent: rash Course Vital Signs 07/21/18 08:28 Temperature 98.7 F Pulse Rate 80 Respiratory 18 Rate Blood Pressure 127/79 O2 Sat by Pulse 98 Oximetry Procedures - Incision & Drainage Consent Obtained: verbal consent Time Out Performed?: Yes Site: face Size (cm): 1 Anesthetic Used: lidocaine 1%, without epi Amount (mLs): 4 I&D Cleaning Method: Chloroprep Needle Aspiration Performed?: Yes I&D Drainage Obtained: Pus, Blood Culture Obtained?: Yes Patient Tolerated Procedure: well, no complications Medical Decision Making - Medical Decision Making 38-year-old female presented for an abscess the right side of her face. I did aspirate the abscess and expressed a large amount of purulent drainage. Patient felt instant relief of the pressure and symptoms. I did explain there may be an underlying cyst that she's had for several years which may cause her problem down the road. She can follow-up with dermatology for removal secondary to be on the face. We did discuss that this was only a needle aspiration because it was on her face and that no incision was going to be made. Patient will continue Bactrim, warm compresses and return for any worsening symptoms. Disposition Clinical Impression: Abscess of face Disposition: HOME SELF-CARE Condition: Stable Instructions: Abscess Incision and Drainage (ED), Abscess (ED) Additional Instructions: Please return to the Emergency Department if symptoms worsen or any other concerns. Is patient prescribed a controlled substance at d/c from ED?: No Referrals: Eddy Hayden MD [Primary Care Provider] - 1-2 days Time of Disposition: 09:10
== END 2018-07-21 09:22 | disposition home or self-care (01) ==
LOC: EC 08:27
DX: L02.01 Cutaneous abscess of face (principal); F32.9 Major depressive disorder, single episode, unspecified; F41.9 Anxiety disorder, unspecified; F43.10 Post-traumatic stress disorder, unspecified; F17.200 Nicotine dependence, unspecified, uncomplicated; Z86.14 Personal history of Methicillin resistant Staphylococcus aureus infection; Z79.899 Other long term (current) drug therapy; Z88.0 Allergy status to penicillin; Z88.8 Allergy status to other drugs, medicaments and biological substances
CPT/HCPCS: 87070; 87205; 99283; 10160; J2001

== ENCOUNTER → 2020-03-31 | Outpatient (CLI) | payer OTHER ==
--- NOTE | 2020-03-31 14:04 | MR ---
EXAMINATION TYPE: MR shoulder LT wo con DATE OF EXAM: 03/31/2020 COMPARISON: NONE HISTORY: Lt shoulder pain, injured Jun 2019 TECHNIQUE: Multiplanar, multisequence imaging of the left shoulder is performed without contrast. FINDINGS: Rotator Cuff: Distal supraspinatus and infraspinatus tendons are predominantly intact. There is tiny articular surface tear believed to be involving the anterior aspect of the infraspinatus tendon measu ring 3 mm transversely coronal image 17 and 3 to 4 mm AP diameter sagittal image 8. Some increased si gnal noted in the distal infraspinatus tendon and adjacent subdeltoid/subacromial bursa. Subscapulari s tendon is intact. Rotator cuff muscle bulk is preserved. Acromioclavicular Joint: Moderate narrowing with mild capsular hypertrophy. No significant spurring. Underlying fat plane maintained. There is however some loss of fat plane as there is type II downslop ing acromion coronal image 18 and sagittal image 13 for reference. Glenohumeral Joint: Mild to moderate narrowing with small glenohumeral joint effusion. No significant spurring. Labrum: The labrum appears grossly intact given limitation of non-arthrogram study. Biceps Tendon: The long head of biceps is in normal location within bicipital groove. Some increased signal and thickening of the intracapsular portion is felt present. Bone marrow signal: Heterogeneity consistent with red marrow reconversion. Subchondral cystic change involving the femoral head is noted. Other: Loss of normal fat in the rotator cuff interval with thickening of the inferior glenohumeral l igament thought present. IMPRESSION: 1. Tendinosis and tiny partial articular surface tear of the infraspinatus tendon. 2. Tendinosis/partial tearing of the intracapsular portion long head of biceps tendon. 3. Type II downsloping acromion with suggestion of underlying impingement, correlate clinically. 4. Possible adhesive capsulitis based on MRI findings, correlate clinically.
== END | disposition home or self-care (01) ==
LOC: RADMRIMAIN 13:00
PROVIDERS: ATTEND Orthopaedic Surgery Sports Medicine
DX: S46.812A Strain of other muscles, fascia and tendons at shoulder and upper arm level, left arm, initial encounter (principal)

== ENCOUNTER → 2021-05-13 | Outpatient (CLI) | payer OTHER ==
--- NOTE | 2021-05-14 14:27 | MM ---
Reason for exam: screening (asymptomatic). Baseline mammogram. Physical Findings: Nurse did not find any significant physical abnormalities on exam. MG Screening Mammo w CAD Bilateral CC and MLO view(s) were taken. The breast tissue is heterogeneously dense. This may lower the sensitivity of mammography. Focal asymmetry upper left MLO view. ASSESSMENT: Incomplete: need additional imaging evaluation, BI-RAD 0 RECOMMENDATION: Special view mammogram of the left breast. If lesion persists on supplemental views, image directed ultrasound is recommended. [facility] will attempt to contact patient to return for supplemental views and ultrasound if indicated.
== END | disposition home or self-care (01) ==
LOC: RADMAMWWP 09:52
PROVIDERS: ATTEND Obstetrics & Gynecology
DX: Z12.31 Encounter for screening mammogram for malignant neoplasm of breast (principal)
CPT/HCPCS: 77067

== ENCOUNTER → 2021-05-25 | Outpatient (CLI) | payer OTHER ==
--- NOTE | 2021-05-25 11:37 | MM ---
Reason for exam: additional evaluation requested from abnormal screening. Last mammogram was performed less than 1 month ago. Physical Findings: Nurse did not find any significant physical abnormalities on exam. MG Work Up Mamm w CAD LT Spot compression CC, spot compression MLO, and LM view(s) were taken of the left breast. Prior study comparison: May 13, 2021, bilateral MG screening mammo w CAD. There are scattered fibroglandular densities. Asymmetry left breast is pliable and presumably represents overlapping fibroglandular tissue. These results were verbally communicated with the patient and result sheet given to the patient on 05/25/21. ASSESSMENT: Negative, BI-RAD 1 RECOMMENDATION: Return to routine screening mammogram schedule for both breasts.
== END | disposition home or self-care (01) ==
LOC: RADMAMWWP 10:22
PROVIDERS: ATTEND Obstetrics & Gynecology
DX: R92.8 Other abnormal and inconclusive findings on diagnostic imaging of breast (principal)
CPT/HCPCS: 77065

== ENCOUNTER → 2022-05-02 | Outpatient (CLI) | payer OTHER ==
[2022-05-02 18:42] LABS: African American GFR (CKD) 128.3 (60.0-200.0); Anion Gap 11.6 mmol/L (10.00-18.00); BUN/Creat Ratio 19.66 Ratio (12.00-20.00); Blood Urea Nitrogen 12.9 mg/dL (9.0-27.0); Calcium 9.2 mg/dL (8.7-10.3); Carbon Dioxide 19.3 mmol/L (20.0-27.5); Non-African American GFR(CKD) 110.7 (60.0-200.0); Potassium 4.3 mmol/L (3.5-5.5)
[2022-05-02 18:54] LABS: Basophils # (A) 0.05 X 10*3/uL (0.00-0.10); Basophils % (A) 0.7 %; Eosinophils # (A) 0.14 X 10*3/uL (0.04-0.35); Eosinophils % (A) 2.1 %; HCT 41.8 % (37.2-46.3); Immature Grans, Automated 0.4 %; Lymphocytes # (A) 1.94 X 10*3/uL (0.90-5.00); MCH 30.7 pg (27.0-32.0); MCHC 33.5 g/dL (32.0-37.0); MCV 91.7 fL (80.0-97.0); Mean Platelet Volume 11.1 fL (9.5-12.2); Monocytes # (A) 0.47 X 10*3/uL (0.20-1.00); NRBC Per 100 WBC 0 /100 WBCS (0.0-0.0); Neutrophils # (A) 4.07 X 10*3/uL (1.80-7.70); Neutrophils % (A) 60.8 %; Platelet Count 266 X 10*3/uL (140-440); RBC 4.56 X 10*6/uL (4.10-5.20); RDW 13.3 % (11.5-14.5)
== END | disposition home or self-care (01) ==
LOC: LABPAT 13:39
PROVIDERS: ATTEND Obstetrics & Gynecology
DX: Z01.812 Encounter for preprocedural laboratory examination (principal)
CPT/HCPCS: 80048; 85025; 86850; 86900; 86901

== ENCOUNTER 2022-05-05 05:30 | Observation (INO) | payer OTHER ==
[~2022-05-05 05:30] MED LIST changes: -LACTATED RINGERS 1,000 ML IV SCH; +VANCOMYCIN 1,250 MG in SODIUM CHLORIDE 0.9% 250 ML IVPB PRN
--- NOTE | 2022-05-05 05:42 | P.HPOB ---
History of Present Illness H&P Date: 05/05/22 Chief Complaint: dysmenorrhea, fibroid uterus 41 year old presents for TLH BS using da angelina and diagnostic cystoscopy for dysmenorrhea and fibroid uterus. Review of Systems All systems: negative Constitutional: Denies chills, Denies fever Eyes: denies blurred vision, denies pain Ears, nose, mouth and throat: Denies headache, Denies sore throat Cardiovascular: Denies chest pain, Denies shortness of breath Respiratory: Denies cough Gastrointestinal: Denies abdominal pain, Denies diarrhea, Denies nausea, Denies vomiting Genitourinary: Denies dysuria, Denies hematuria Musculoskeletal: Denies myalgias Integumentary: Denies pruritus, Denies rash Neurological: Denies numbness, Denies weakness Psychiatric: Denies anxiety, Denies depression Endocrine: Denies fatigue, Denies weight change Past Medical History Past Medical History: Musculoskeletal Disorder, Osteoarthritis (OA), Seizure D isorder Additional Past Medical History / Comment(s): Urinary incontinence at night. Pain Back. HX 2 SEIZURES, POSS STRESS INDUCED, LAST SEIZURE 2013. hx of hypertension but under control now no meds. History of Any Multi-Drug Resistant Organisms: MRSA Date of last positivie culture/infection: jun 2014 MDRO Source:: groin Past Surgical History: Section, Orthopedic Surgery, Tubal Ligation Additional Past Surgical History / Comment(s): I&D groin wound, jaw and behind rt ear; bilateral hands carpal tunnel surgery. PAIN PROC Past Anesthesia/Blood Transfusion Reactions: Motion Sickness Smoking Status: Current every day smoker - Past Family History Mother Family Medical History: No Reported History Father Family Medical History: No Reported History Additional Family Medical History / Comment(s): doesnt go to a Doctor Medications and Allergies Home Medications Medication Instructions Recorded Confirmed Type HYDROcodone/APAP 10-325MG [[place] 1 tab PO TID PRN 07/13/14 04/29/22 History 10-325] DULoxetine HCL [Cymbalta] 60 mg PO DAILY 12/21/17 04/29/22 History Topiramate [Topamax] 100 mg PO DAILY 04/29/22 04/29/22 History Allergies Allergy/AdvReac Type Severity Reaction Status Date / Time Penicillins Allergy Mild Rash/Hives Verified 04/29/22 15:27 fluoxetine [From Prozac] Allergy Vomiting Verified 04/29/22 15:27 Exam Osteopathic Statement: *. No significant issues noted on an osteopathic structural exam other than those noted in the History and Physical/Consult. Heart: RRR Lungs: CTAB Abdomen: soft, nontedner Extremeties: neg yanira's Assessment and Plan (1) Dysmenorrhea Current Visit: Yes Status: Acute Code(s): N94.6 - DYSMENORRHEA, UNSPECIFIED SNOMED Code(s): 755271702 (2) Fibroid uterus Current Visit: Yes Status: Acute Code(s): D25.9 - LEIOMYOMA OF UTERUS, UNSPECIFIED SNOMED Code(s): 10810663 Plan: 1. Total laparoscopic hysterectomy and bilateral salpingectomy using da angelina, diagnostic cystoscopy, possible laparotomy.
[2022-05-05] MEDS ORDERED: DEXAMETHASONE SOD PHOSPHATE 4 MG/ML 1 ML VIAL IV ONE (05:44)
[2022-05-05] MEDS ORDERED: ONDANSETRON 4 MG/2 ML VIAL IVP ONE (05:44)
[2022-05-05] MEDS: LACTATED RINGERS 1,000 ML IV SCH ×2 (05:50→14:22)
[2022-05-05] MEDS ORDERED: GLYCOPYRROLATE 0.2 MG/ML 2 ML VIAL ONE ×2 (07:12)
[2022-05-05] MEDS ORDERED: PROPOFOL 10 MG/ML 20 ML VIAL IV ONE ×2 (07:12)
[2022-05-05] MEDS ORDERED: fentaNYL (PF) 50 MCG/ML 2 ML AMP ONE ×2 (07:12)
[2022-05-05] MEDS ORDERED: MIDAZOLAM 2 MG/2 ML VIAL ONE ×2 (07:12)
[2022-05-05] MEDS ORDERED: ROCURONIUM 10 MG/ML (5 ML VIAL) IV ONE ×2 (07:12)
[2022-05-05] MEDS ORDERED: SUCCINYLCHOLINE CHLORIDE 100 MG/5 ML SYR IV ONE ×2 (07:12)
[2022-05-05] MEDS ORDERED: HYDROmorphone (PF) 1 MG/ML ONE ×2 (07:12)
[2022-05-05] MEDS ORDERED: LIDOCAINE 2% INJ 20 MG/ML (2 ML VIAL) ONE ×2 (07:12)
[2022-05-05] MEDS ORDERED: NEOSTIGMINE 1 MG/ML 10 ML VIAL ONE ×2 (07:12)
[2022-05-05] MEDS ORDERED: KETOROLAC 15 MG/ML 1 ML VIAL ONE ×2 (07:12)
[2022-05-05] MEDS ORDERED: BUPIVACAINE (PF) 0.25% 30 ML VIAL SQ ONE ×2 (07:47→08:50)
[2022-05-05] MEDS ORDERED: LACTATED RINGERS 1,000 ML IV ONE (08:23)
[2022-05-05] MEDS ORDERED: METOCLOPRAMIDE 5 MG/ML 2 ML VIAL IVP PRN (09:11)
[2022-05-05] MEDS ORDERED: ZOLPIDEM 5 MG TAB PO PRN (09:11)
[2022-05-05] MEDS ORDERED: diphenhydrAMINE 50 MG/ML 1 ML VIAL IVP PRN (09:11)
[2022-05-05] MEDS ORDERED: SIMETHICONE 80 MG CHEWABLE PO PRN (09:11)
[2022-05-05] MEDS ORDERED: IBUPROFEN 600 MG TAB PO PRN (09:11)
[2022-05-05] MEDS ORDERED: ONDANSETRON 4 MG/2 ML VIAL IVP PRN (09:11)
--- NOTE | 2022-05-05 09:11 | P.OP ---
Date of Procedure: 05/05/22 Preoperative Diagnosis: 1. Fibroid uterus 2. Dysmenorrhea Postoperative Diagnosis: 1. Fibroid uterus 2. Dysmenorrhea Procedure(s) Performed: Total laparoscopic hysterectomy using da Shiraz and diagnostic cystoscopy Anesthesia: OLVIN Surgeon: Nicole Benito Raw Material Planner #1: Jacey Ramos Estimated Blood Loss (ml): 50 IV fluids (ml): 1,000 Urine output (ml): 100 Pathology: other (Uterus and cervix) Condition: stable Disposition: PACU Operative Findings: Enlarged uterus 13 cm. normal ovaries Description of Procedure: Patient taken the operating room where general anesthesia was obtained without difficulty. She is prepped and draped in normal sterile fashion dorsal lithotomy position, legs placed in the Dewayne stirrups. Weighted speculum placed in the vagina and the anterior lip the cervix was grasped with single-tooth tenaculum. The uterus sounded to 13 cm and the cervix diameter was 3.5 cm. The appropriate manipulator tip and ring were placed on the Bernice manipulator. The Bernice manipulator was then placed in the uterus. Gonzalez catheter was also placed. Attention was then turned to the abdomen and gloves were changed. A 5 mm supraumbilical incision was made the scalpel and a 5 mm optical trocar was placed under direct visualization. 10 cm to the right of this and 2 cm down a 5 mm incision was made and 8 mm da Shiraz port was placed under direct visualizatio n. Same measurements on the opposite side of the patient's abdomen, the 5 mm incision was made and 8 mm da Shiraz port was placed under direct visualization. In the left upper quadrant a 10 mm incision was made and a 10 mm optical trocar was placed under direct visualization. The 5 mm optical trocar was then replaced with the 8 mm da Shiraz camera port. The robot was docked on patient's right side. The camera was introduced and then the monopolar curved scissor and [place] bipolar placed under direct visualization. I broke scrub and went to the physician console. The left utero-ovarian ligament was cauterized with the [place] bipolar and cut with monopolar curved scissors. The left round ligament was cauterized with the [place] bipolar and cut with monopolar curved scissors. The posterior leaf of the broad ligament was taken down using the monopolar curved scissors. Anterior leaf of the broad ligament was then taken down using the monopolar curved scissors. The uterine artery was cauterized with the [place] bipolar and cut with monopolar curved scissors. The bladder flap was then started using the monopolar curved scissors. Attention was then turned to the right side of the patient's anatomy and the right utero-ovarian ligament was cauterized with the [place] bipolar and cut with monopolar curved scissors. The right round ligament was cauterized with the [place] bipolar and cut with monopolar curved scissors. Posterior leaf of the broad ligament was taken down using the monopolar curved scissors and the anterior leaf was taken down using the monopolar curved scissors. The uterine artery was cauterized the [place] bipolar cut with monopolar curved scissors. The bladder flap was then finished on this side. Anterior colpotomy was made using the monopolar curved scissors. The rest of the uterus was from the vaginal cuff by following the ring around with the monopolar curved scissors through the uterosacral ligaments back to the anterior portion. Once the uterus and cervix were amputated they were pulled through the vaginal cuff. Hemostasis was assured. The instruments were changed for the Cardier forcep and the boni suture cut. The vaginal cuff was then closed using 2-O stratafix barbed suture in a running fashion. Hemostasis was again assured and the pelvis was irrigated. All instruments were removed from the abdomen and the robot was undocked. I scrubbed back in to perform a cystoscopy. There were jets from both ureteral orifices. The abdominal incisions were closed with 4-0 Vicryl in a subcuticular fashion. Patient tolerated the procedure well, sponge and instrument counts correct 2 and she was taken to recovery room in stable condition condition
[2022-05-05] MEDS: HYDROmorphone 0.5 MG/0.5 ML SYRINGE IVP PRN ×2 (10:00→10:17)
[2022-05-05] MEDS: KETOROLAC 15 MG/ML 1 ML VIAL IVP PRN ×2 (14:21→20:19)
[2022-05-05] MEDS: HYDROcodone/APAP 10-325MG 1 EACH TAB PO PRN (17:43)
[2022-05-05] MEDS: SENNOSIDES-DOCUSATE SODIUM 1 EACH TAB PO SCH (22:23)
[2022-05-05 22:55] VITALS: RESP 16
[2022-05-06] MEDS: HYDROcodone/APAP 10-325MG 1 EACH TAB PO PRN ×2 (00:34→07:38)
[2022-05-06] MEDS: KETOROLAC 15 MG/ML 1 ML VIAL IVP PRN (04:02)
[2022-05-06 06:54] LABS: Basophils % (A) 0 %; Eosinophils # (A) 0.2 k/uL (0-0.7); Eosinophils % (A) 2 %; HCT 38.7 % (34.0-46.0); HGB 12.8 gm/dL (11.4-16.0); Lymphocytes # (A) 2.5 k/uL (1.0-4.8); Lymphocytes % (A) 21 %; MCH 31.2 pg (25.0-35.0); MCHC 33.1 g/dL (31.0-37.0); MCV 94.2 fL (80.0-100.0); Mean Platelet Volume 8.1; Monocytes # (A) 0.5 k/uL (0-1.0); Monocytes % (A) 4 %; Neutrophils # (A) 8.2 k/uL (1.3-7.7); Neutrophils % (A) 71 %; Platelet Count 231 k/uL (150-450); RBC 4.11 m/uL (3.80-5.40); RDW 13.3 % (11.5-15.5); WBC 11.6 k/uL (3.8-10.6)
[2022-05-06] MEDS: SENNOSIDES-DOCUSATE SODIUM 1 EACH TAB PO SCH (07:38)
--- NOTE | 2022-05-06 08:01 | P.DS ---
Providers Date of admission: 05/06/22 00:31 Expected date of discharge: 05/06/22 Attending physician: Nicole Benito Primary care physician: Evelyn Vences - Discharge Diagnosis(es) (1) Dysmenorrhea Current Visit: Yes Status: Resolved (2) Fibroid uterus Current Visit: Yes Status: Resolved (3) S/P robot-assisted surgical procedure Total laparoscopic hysterectomy Current Visit: Yes Status: Acute Hospital Course: Patient presented for total laparoscopic hysterectomy using da Shiraz and diagnostic cystoscopy. She underwent this procedure without complications. Postoperative course was uneventful. She is tolerating regular diet, passing flatus, denies nausea, vomiting, chest pain, shortness of breath or any calf pain. She will be discharged home postoperative day #1 in stable condition to follow-up with me in 3 weeks. Plan - Discharge Summary Discharge Rx Participant: Yes New Discharge Prescriptions: New Ibuprofen [Motrin] 600 mg PO Q6HR PRN #30 tab PRN Reason: Mild Pain Or Fever >= 100.5 No Action HYDROcodone/APAP 10-325MG [[place] 10-325] 1 tab PO TID PRN PRN Reason: Pain DULoxetine HCL [Cymbalta] 60 mg PO DAILY Topiramate [Topamax] 100 mg PO DAILY Discharge Medication List HYDROcodone/APAP 10-325MG [[place] 10-325] 1 tab PO TID PRN 07/13/14 [History] DULoxetine HCL [Cymbalta] 60 mg PO DAILY 12/21/17 [History] Topiramate [Topamax] 100 mg PO DAILY 04/29/22 [History] Ibuprofen [Motrin] 600 mg PO Q6HR PRN #30 tab 05/06/22 [Rx] Follow up Appointment(s)/Referral(s): Nicole Benito DO [Doctor of Osteopathic Medicine] - 3 Weeks Discharge Disposition: HOME SELF-CARE
[2022-05-06 08:28] VITALS: BP 139/82; PULSE 78; TEMP 98.4
[2022-05-06] MEDS ORDERED: TOPIRAMATE 100 MG TAB PO SCH (09:00)
[2022-05-06] MEDS ORDERED: DULoxetine HCL 60 MG CAPSULE.DR PO SCH (09:00)
[2022-05-06] MEDS ORDERED: ACETAMINOPHEN TAB 325 MG TAB PO PRN (09:12)
== END 2022-05-06 09:54 | disposition home or self-care (01) ==
LOC: OR 05:30 → 4FBP 10:25 → OR 05-06 00:31
PROVIDERS: ADMIT Obstetrics & Gynecology; ATTEND Obstetrics & Gynecology
DX: N88.8 Other specified noninflammatory disorders of cervix uteri (principal); N72 Inflammatory disease of cervix uteri; N87.9 Dysplasia of cervix uteri, unspecified; R23.4 Changes in skin texture; N94.6 Dysmenorrhea, unspecified; N85.6 Intrauterine synechiae; G40.909 Epilepsy, unspecified, not intractable, without status epilepticus; F17.200 Nicotine dependence, unspecified, uncomplicated; M19.90 Unspecified osteoarthritis, unspecified site; N39.44 Nocturnal enuresis; I10 Essential (primary) hypertension; Z86.14 Personal history of Methicillin resistant Staphylococcus aureus infection; Z98.891 History of uterine scar from previous surgery; Z98.51 Tubal ligation status; Z98.890 Other specified postprocedural states; Z79.899 Other long term (current) drug therapy; Z88.0 Allergy status to penicillin; Z88.8 Allergy status to other drugs, medicaments and biological substances
CPT/HCPCS: 58572; S2900; 81025; 85025; 88307

== ENCOUNTER → 2024-08-15 | Outpatient (CLI) | payer OTHER ==
[2024-08-15 17:04] VITALS: BP 155/98; PULSE 95; RESP 16; TEMP 97.7
--- NOTE | 2024-08-15 17:34 | P.SLEEP ---
History of Present Illness DATE: 08/15/2024 CONSULTATION/NEW PATIENT EVALUATION HISTORY OF PRESENT ILLNESS/SLEEP-WAKE EVALUATION: 44-year-old lady had been e valuated in the sleep center for possible obstructive sleep apnea hypopnea syndrome. SLEEP SCHEDULE: Usually sleep schedule from 11 PM to 7 AM on weekdays and from 1 AM to 11 AM on weekend. FALLING ASLEEP: Patient does have difficulties with falling asleep, has TV set in bedroom. DURING SLEEP: Patient snores, wakes up from sleep 3 times with nocturia. Positive history of twitching and jerking's of the legs. Positive history of grinding teeth and restless legs. No history of hypnogogical hallucinations, sleep paralysis, or cataplexy. DURING THE DAY/WAKE STATE: In the morning patient wake up tired, has difficulties to pay attention. Positive history of problems with memory, concentration, irritability, depression, anxiety. Rienzi sleepiness scale is 6. Usually patient does not take naps. PAST MEDICAL HISTORY: Anxiety, back problems, vertigo, nasal polyps. PAST SURGICAL HISTORY: Hysterectomy partial. MEDICATIONS: Please see below. SOCIAL HISTORY: Please see below. FAMILY HISTORY: Asthma, sleep apnea, lung problems diabetes. REVIEW OF SYSTEMS: Snoring, multiple awakenings from sleep, sleepiness during the day. No fevers. No double vision. No recent chest pain. No shortness of breath. No abdominal pain. No bleeding episodes. No blood in urine. No seizure episodes. PHYSICAL EXAMINATION: GENERAL: A pleasant patient without any distress. VITAL SIGNS: Please see below, weight 212 pounds, BMI 36.3. HEENT: PERRLA, EOMI. Evaluation of oropharynx showed tongue protrudes midline, low position of soft palate Mallampati 4. NECK: Supple. No JVD. Thyroid is not palpable. 16 inches in circumference. LUNGS: Clear to percussion and to auscultation. Good air exchange. No wheezing or rhonchi. HEART: S1, S2 regular. No murmurs, gallops or rubs. ABDOMEN: Soft and nontender. Bowel sounds are present. No organomegaly appreciated. EXTREMITIES: No clubbing or cyanosis. INVESTMENT STRATEGIST: Awake, alert, and oriented x3. Cranial nerves 2 to 7 intact. There is no fasciculation or atrophy noted. No focal deficits observed. ASSESSMENT: 1. Snoring, multiple awakenings from sleep, extremely low position of soft palate Mallampati 4, wide neck 16 inches in circumference. Obstructive sleep apnea hypopnea syndrome. 2. Obesity, BMI 36.3. 3. History of depression. 4. History of anxiety. 5. Headaches. 6 . Back problems. 7. Vertigo. 8. Nasal polyps. 9 . Status post partial hysterectomy. PLAN: 1. Polysomnography for evaluation of patient's breathing during sleep. 2. Following plan after reading sleep study. 3. Preferable position during sleep on the side. 4. No driving if patient feels any sleepiness. Patient is aware of civil and criminal liability for unsafe driving. 5. Sleep hygiene with regular sleep time for at least 7.5-8 hours. 6. Watching and losing weight. Thank you very much for referring this patient for consultation. Sincerely, Harpal Braga MD, PhD, FAASM. Diplomat of [place] [employer], Sleep Medicine Board by [place] [employer] [place] [employer] [facility] Page cc: Dr. Vences [facility] Past Medical History Past Medical History: Hypertension, Musculoskeletal Disorder, Osteoarthritis (OA), Seizure Disorder Additional Past Medical History / Comment(s): Urinary incontinence at night. Pain Back. HX 2 SEIZURES, POSS STRESS INDUCED, LAST SEIZURE 2013. Arthritis, Snoring, Headaches, Insomnia, nasall polyps, anxiety, depression, restless legs. On Ozempic for weight loss. Panic attacks, vertigo, convulsions as a baby and later seizures (alchol induced). History of Any Multi-Drug Resistant Organisms: MRSA Date of last positivie culture/infection: jun 2014 MDRO Source:: groin - patient currently having a flare up of this again - has cream for Past Surgical History: Section, Orthopedic Surgery, Tubal Ligation Additional Past Surgical History / Comment(s): I&D groin wound; left and right hand carpal tunnel surgery. Cyst removed - face. PAIN PROC Past Anesthesia/Blood Transfusion Reactions: Motion Sickness Past Psychological History: Anxiety, Depression, Panic Disorder, PTSD Additional Psychological History / Comment(s): OFF RX 11/2016 Smoking Status: Former smoker, Vaper Past Alcohol Use History: Occasional Additional Past Alcohol Use History / Comment(s): STARTING SMOKING AT AGE 15 SMOKES 1/2PPD Past Drug Use History: None Reported Additional Drug Use History / Comment(s): NO CURRENT USE - Past Family History Mother Family Medical History: Asthma, COPD, Sleep Apnea/CPAP/BIPAP Additional Family Medical History / Comment(s): emphysema, arthritis, bronchitis, snoring, Father Family Medical History: No Reported History Additional Family Medical History / Comment(s): doesnt go to a Doctor Medications and Allergies Home Medications Medication Instructions Recorded Confirmed Type HYDROcodone/APAP 10-325MG [[place] 1 tab PO TID PRN 07/13/14 05/05/22 History 10-325] DULoxetine HCL [Cymbalta] 90 mg PO DAILY 12/21/17 08/15/24 History Topiramate [Topamax] 100 mg PO DAILY 04/29/22 05/05/22 History Ibuprofen [Motrin] 600 mg PO Q6HR PRN #30 tab 05/06/22 Rx HYDROcodone/APAP 5-325MG [[place] 5 tab PO TID 08/15/24 08/15/24 History 5-325] Lurasidone [Latuda] 20 mg PO DAILY 08/15/24 08/15/24 History Semaglutide [Ozempic] 2.5 mg SQ WEEKLY 08/15/24 08/15/24 History hydrOXYzine HCL [Hydroxyzine HCl] 25 mg PO DIRECTED 08/15/24 08/15/24 History Allergies Allergy/AdvReac Type Severity Reaction Status Date / Time Penicillins Allergy Mild Rash/Hives Verified 05/05/22 05:52 fluoxetine [From Prozac] Allergy Vomiting Verified 05/05/22 05:52 Physical Exam Vitals: Vital Signs Temp Pulse Resp BP Pulse Ox 08/15/24 17:03 97.7 F 95 16 155/98 100 Sleep Note - Sleep Data ESS Total: 6 - Sleep Note Sleep Note: Temperature: 97.7 F Pulse Rate: 95 Respiratory Rate: 16 Blood Pressure: 155/98 SpO2: 100 Height: Weight: BMI: Neck Circumference: 16
== END ==
LOC: 3 N SLEEP 16:27
PROVIDERS: ATTEND Internal Medicine
DX: G47.33 Obstructive sleep apnea (adult) (pediatric) (principal); E66.9 Obesity, unspecified; R51.9 Headache, unspecified; M53.9 Dorsopathy, unspecified; J33.9 Nasal polyp, unspecified; R42 Dizziness and giddiness; Z90.711 Acquired absence of uterus with remaining cervical stump; Z88.0 Allergy status to penicillin; Z88.8 Allergy status to other drugs, medicaments and biological substances; Z86.59 Personal history of other mental and behavioral disorders; Z68.36 Body mass index [BMI] 36.0-36.9, adult; Z87.891 Personal history of nicotine dependence
CPT/HCPCS: 99211

== ENCOUNTER 2024-09-03 19:44 | Outpatient (CLI) | payer OTHER ==
--- NOTE | 2024-09-05 17:57 | P.PCN ---
Description of Procedure: POLYSOMNOGRAPHY REPORT PROCEDURE(S)/DATE(S): Polysomnography 09/03/2024 CLINICAL: Patient has been seen in the sleep center for evaluation of obstructive sleep apnea-hypopnea syndrome. Please see my consultation. Sleep study has been done for evaluation of patient breathing during the sleep. PROCEDURE: The standard montage for clinical polysomnography included the electroencephalogram, the electrooculogram, the mentalis surface electromyography and Lead II cardiography. The respiratory battery consisted of measurements of nasal/buccal air flow, pressure transducer measurements from nose, thoracic and/or abdominal effort and intercostal surface electromyography. Video monitoring has been done to check for any parasomnia events. Nocturnal oxyhemoglobin saturations were obtained by finger oximetry. Step-hein titration with positive airway pressure was utilized to control the respiratory events, if necessary. RESULTS: During the diagnostic sleep study sleep efficiency was significantly decreased to 59.3%. Latency to sleep onset was significantly prolonged to 79.0 min. Sleep architecture showed stage NI and very high range of 24.3%, Delta sleep was absent 0%, REM sleep was absent 0%. Respiratory channel showed 5 obstructive apneas, 0 mixed apneas, 0 central apneas, 11 hypopneas with lowest oxygen level 90%. Total apnea hypopnea index was 3.6. Heart rate was in the range between 71 and 82, average 76. EMG showed 39.6 periodic limb movements per hour. IMPRESSIONS: 1. No significant respiratory abnormalities given documented during the sleep study, normal oxygenation during sleep. 2. Significant periodic limb movements have been documented. Please see other impressions from consultation PLAN: 1. Please check iron profile including ferritin level. Low level of iron may increase the risk for periodic limb movements.. 2. Losing weight program. 3. Sleep hygiene with regular time in bed for at least 7-1/2 hours. 4. No driving if feeling sleepiness. Thank you very much for allowing me to participate in the management of your patient. Sincerely, Harpal Braga MD, PhD, FAASM. Diplomat of [place] [employer], Sleep Medicine Board by [place] [employer] Processing [employer] [facility] [place] cc: vEelyn Vences MD
== END 2024-09-04 05:30 | disposition home or self-care (01) ==
LOC: 3 N SLEEP 19:44
PROVIDERS: ATTEND Internal Medicine
DX: G47.33 Obstructive sleep apnea (adult) (pediatric) (principal); G47.61 Periodic limb movement disorder; F17.200 Nicotine dependence, unspecified, uncomplicated; Z88.0 Allergy status to penicillin; Z88.8 Allergy status to other drugs, medicaments and biological substances
CPT/HCPCS: 95810

== ENCOUNTER → 2024-10-14 | Outpatient (CLI) | payer OTHER ==
--- NOTE | 2024-10-14 20:07 | CT ---
EXAMINATION TYPE: CT angio chest DATE OF EXAM: 10/14/2024 6:39 PM COMPARISON: 01/16/2017 CLINICAL INDICATION: Female, 44 years old with history of R79.89 ELEVATED D DIMER; Elevated D-Dimer. TECHNIQUE/CONTRAST: CTA scan of the thorax is performed with IV Contrast, patient injected with 100ml mL of Isovue 370, M IP images are created and reviewed these are created on a separate workstation.. CT DLP: 452.6 mGycm, Automated exposure control for dose reduction was used. FINDINGS: Lungs/Pleura: No evidence of focal consolidation, pleural effusion or pneumothorax. Airway: Large airways are patent. Heart: Heart is within normal limits for size. Vasculature: There is no evidence for a filling defect within the pulmonary vasculature to suggest ac [place] pulmonary embolism. The pulmonary artery is of normal size. Mediastinum: No gross evidence of adenopathy. Musculoskeletal: Mild degenerative disc disease changes are present throughout the thoracolumbar spin e. Soft Tissues/lymph nodes: Unremarkable. Lower neck: No significant findings. Upper Abdomen: No significant findings. IMPRESSION: No evidence of pulmonary embolism. Follow up recommendations for incidental pulmonary nodules, if there are any, are per [employer]s [place] [employer] or [employer]. https://radiopaedia.org/articles/ljvclixqoh-[email or web address]?lang=us [facility], , 10/14/2024 8:04 PM
== END | disposition home or self-care (01) ==
LOC: RADCTMAIN 17:08
PROVIDERS: ATTEND Internal Medicine
DX: R79.89 Other specified abnormal findings of blood chemistry (principal)
CPT/HCPCS: 71275; Q9967